=== PATIENT | female | born 1950 | race Caucasian/White ===

== ENCOUNTER 2016-10-30 19:00 | Emergency (ER) | payer MEDICARE ==
[~2016-10-30] VITALS: Ht 167.6 cm; Wt 66.4 kg
[~2016-10-30 19:00] MED LIST: ACET1TAB12 PO; AMLO5TAB2 PO; ASPI325T32 PO; ATEN100T PO; BENA40TA2 PO; CALC600T12 PO; DIAZ5TAB PO; LIP40 PO; MELO7.5O PO; METF500T4 PO; MULT-1018 PO; OMEG1CAP56 PO; OXYC1TAB24 PO; TRAZ150T72 PO
[2016-10-30 19:09] VITALS: BP 174/78; PULSE 57; RESP 16; O2SAT 96
--- NOTE | 2016-10-30 19:50 | DRSVH ---
PROCEDURE: X-RAY PELVIS W/LAT HIP (RT) ([id number]) INDICATIONS: HIP PAIN TECHNIQUE: AP pelvis and lateral view of the right hip acquired. COMPARISON: [facility], , XR PELVIS W LATERAL HIP RT, 02/23/2016, 5:17. FINDINGS: Bones: Patient is status post bilateral hip arthroplasties with hardware components in expected posi tions. The hip joint appears congruent. The visualized bony structures appear intact. Soft tissues: Overlying postoperative changes are noted. No suspicious soft tissue densities. IMPRESSION: No fracture. No acute osseous lesion. If there are persistent symptoms or clinical suspi cion for pathology, then repeat radiographs or advanced imaging (CT or bone scan) should be considere d for further evaluation. Dictated by: Brenda Ramsay MD, PhD on 10/30/2016 at 19:47 Approved by: Brenda Ramsay MD, PhD on 10/30/2016 at 19:48
--- NOTE | 2016-10-30 20:11 | ED.REPORT ---
HPI-Hip/Pelvis Prob/Inj Date of Service Oct 30, 2016 ED Provider: Ivan Sanchez MD The patient is a 66 year old female w/ a hx of DM, HTN, osteoarthritis and bilateral hip replacement who presents to the ED due to right hip pain after tripping and catching herself at about 11am. She was getting 2 bags of groceries out of the passenger door of her Jeep, her heel caught on the back ledge, she caught herself but felt her hip "pop" accompanied by pain. She is able to bear weight, but has increased in severity since the event. Dr. Vance is her PCP. Nursing Notes Stated Complaint: RIGHT HIP PAIN Chief Complaint: Extremity Trauma Nursing Notes Reviewed: Yes Allergies: Coded Allergies: No Known Allergies (Verified Allergy, Unknown, 02/23/16) Scheduled Amlodipine (Amlodipine) 5 Mg Tablet 5 MG PO DAILY Aspirin (Aspirin) 325 Mg Tablet 325 MG PO DAILY Atenolol (Atenolol) 100 Mg Tablet 100 MG PO BID Atorvastatin (Lipitor) 40 Mg Tablet 40 MG PO DAILY Benazepril (Benazepril) 40 Mg Tablet 40 MG PO DAILY Calcium Carbonate (Calcium) 600 Mg Tablet 1,250 MG PO TID Diazepam (Valium) 5 Mg Tablet 5 MG PO TID Meloxicam (Meloxicam) 7.5 Mg/5 Ml Oral.susp 15 MG PO DAILY Metformin (Metformin) 500 Mg Tablet 500 MG PO BID Multivitamin (Multi Vitamin Daily) 1 Each Tablet 1 EACH PO DAILY [place]-3 Fatty Acids/Fish Oil ([place] 3 1,000 mg Softgel) 1 Each Capsule 1 EACH PO DAILY Trazodone (Trazodone) 150 Mg Tablet 150 MG PO HS Scheduled PRN Acetaminophen/Codeine 300-30mg (Tylenol/Codeine #3) 1 Each Tablet 1-2 TABLET PO Q4H PRN PRN Pain General Time Seen by Provider: 20:17 Chief Complaint Hip injury right Hx Obtained From: Patient Arrived By: Walk-in Onset Occurred: Just prior to arrival Symptom Duration: Since onset Caused by: Fall on ground Severity: Current: Moderate Recent Healthcare: No recent doctor visit, No recent hospitalization Similar Sx Previous: No Past Medical History Past Medical History Osteoarthritis Reports: Diabetes mellitus, Hypertension Past Surgical History bilateral hip and shoulder replacements, 2 part Reports: Appendectomy, , Cholecystectomy, Hysterectomy Smoking History Current Every Day Smoker Social History Alcohol Use: Denies alcohol use Drug Use: Denies drug use Other Social History: Good social support Ambulatory Status Independent Review of Systems Musculoskeletal: Reports: Extremity pain (right leg), Joint pain (right hip) Complete sys rev & neg: except as marked. Physical Exam Initial Vital Signs Vital Signs (First) Date Time Temp Pulse Resp B/P Pulse Ox O2 Delivery O2 Flow Rate FiO2 10/30/16 19:09 36.3 57 16 174/78 96 Room Air Initial VS: Reviewed General/Constitutional: Well-developed, Well-nourished Head / Eyes: Atraumatic, Normocephalic, PERRL ENT: Mucous membranes moist, Conjunctiva normal, No scleral icterus Neck: Supple, Non-tender, Full range of motion Respiratory: Breath sounds normal, Clear to auscultation, No respiratory distress Cardiovascular: Regular rate & rhythm, Heart sounds normal, Intact distal pulses Abdomen / GI: Soft, Non-tender, No guarding, No rebound, No distention Upper Extremities: Vascular intact, Neuro intact, No swelling, No tenderness Skin: Warm, Dry, No cyanosis Psychiatric: Mood/affect normal, Behavior normal, Normal thought content Right Hip: Positive: Tenderness present... (Mild) Interpretation & Diagnostics X-Ray Interpretation Xray Interpretation: IMPRESSION: No fracture. No acute osseous lesion. If there are persistent symptoms or clinical suspicion for pathology, then repeat radiographs or advanced imaging (CT or bone scan) should be considered for further evaluation. Dictated by: Brenda Ramsay MD, PhD on 10/30/2016 at 19:47 Approved by: Brenda Ramsay MD, PhD on 10/30/2016 at 19:48 X-Ray Ordered: Pelvis, Hip right, Hip left Interpretation / Wet Read by: Interpret - Radiologist Re-Eval/Medical Decision Counseled Regarding: Diagnosis, Lab results, Need for follow-up, When/why to return to ED Discharge & Departure Impression: Primary Impression: Sprain of right hip Encounter type: initial encounter Qualified Code: S73.101A - Unspecified sprain of right hip, initial encounter Disposition: Home Discharge Condition All VS Reviewed: Yes Condition: Stable Additional Instructions: Your x-ray does not show any fracture. Use ice and Ibuprofen to help with pain. I am sending you home with some Percocet. Continue meloxicam, activity as tolerated. Ice to sore areas, keep ice wrapped in a towel. Follow up with your primary care physician next week Referrals: Chano Vance MD (PCP) Scribh[place]to Attestation Portion of this note were transcribed by Minerva Romo. I, Dr. Sanchez, personally performed the history, physical exam, and medical decision-making: I reviewed and confirmed the accuracy for the information in the transcribed note. Signed by: carito Schwartz, 10/30/16 2200 copies to: Chano Vance MD, Donald L MD Oct 30, 2016 20:11 Minerva Romo Oct 30, 2016 20:21
[2016-10-30] MEDS ORDERED: oxyCODONE-Acetamin 5-325 mg Tablet PO ONE (20:30)
[2016-10-30] MEDS ORDERED: _oxyCODONE/APAP 5-325 mg Tablet PO PRN (20:35)
[2016-10-30 21:46] VITALS: BP 148/72; PULSE 60; RESP 17; O2SAT 98
== END 2016-10-30 21:46 | disposition home or self-care (01) ==
LOC: SED 19:00
DX: S73.101A Unspecified sprain of right hip, initial encounter (principal); W18.40XA Slipping, tripping and stumbling without falling, unspecified, initial encounter; Y93.89 Activity, other specified; Y92.9 Unspecified place or not applicable; Y99.8 Other external cause status; E11.9 Type 2 diabetes mellitus without complications; I10 Essential (primary) hypertension; F17.200 Nicotine dependence, unspecified, uncomplicated; Z79.82 Long term (current) use of aspirin; Z96.643 Presence of artificial hip joint, bilateral; Z79.84 Long term (current) use of oral hypoglycemic drugs

== ENCOUNTER 2016-11-15 03:01 | Inpatient (IN) | payer MEDICARE ==
[~2016-11-15] VITALS: Ht 167.6 cm; Wt 65.6 kg
[2016-11-15] VITALS (17 sets, daily range): BP systolic 110–186; BP diastolic 51–81; PULSE 54–70; RESP 15–24; O2SAT 93–97
[~2016-11-15 03:01] MED LIST changes: -OXYC1TAB24 PO
--- NOTE | 2016-11-15 03:06 | ED.REPORT ---
HPI-Chest Pain 40 and Over Date of Service Nov 15, 2016 ED Provider: Thomas Baker MD Patient is a 66 year old female with a history of diabetes mellitus and hypertension who presents to the ED complaining of chest pain that awoke her from sleep at 2am this morning. The patient describes the pain as a burning sensation at the center of her chest, with the patient believing that she was experiencing heartburn. She reports that the pain radiates down her left arm. She admits to associated nausea and diaphoresis but denies vomiting and shortness of breath. The patient is a current everyday smoker but states that "last night was my last cigarette". Nursing Notes Stated Complaint: CHEST PAIN Chief Complaint: Chest Pain Nursing Notes Reviewed: Yes Allergies: Coded Allergies: No Known Allergies (Verified Allergy, Unknown, 02/23/16) Scheduled Amlodipine (Amlodipine) 5 Mg Tablet 5 MG PO DAILY Aspirin (Aspirin) 325 Mg Tablet 325 MG PO DAILY Atenolol (Atenolol) 100 Mg Tablet 100 MG PO BID Atorvastatin (Lipitor) 40 Mg Tablet 40 MG PO DAILY Benazepril (Benazepril) 40 Mg Tablet 40 MG PO DAILY Calcium Carbonate (Calcium) 600 Mg Tablet 1,250 MG PO TID Diazepam (Valium) 5 Mg Tablet 5 MG PO TID Meloxicam (Meloxicam) 7.5 Mg/5 Ml Oral.susp 15 MG PO DAILY Metformin (Metformin) 500 Mg Tablet 500 MG PO BID Multivitamin (Multi Vitamin Daily) 1 Each Tablet 1 EACH PO DAILY [place]-3 Fatty Acids/Fish Oil ([place] 3 1,000 mg Softgel) 1 Each Capsule 1 EACH PO DAILY Trazodone (Trazodone) 150 Mg Tablet 150 MG PO HS Scheduled PRN Acetaminophen/Codeine 300-30mg (Tylenol/Codeine #3) 1 Each Tablet 1-2 TABLET PO Q4H PRN PRN Pain General Time Seen by MD: 03:06 Chief Complaint Chest pain Hx Obtained From: Patient Arrived By: Walk-in Sudden in Onset?: Yes Onset Occurred: 1 - 4 hours ago Symptom Duration: Since onset Location: : Chest left: Chest right Quality: Burning, Painful Radiation: : Arm left Severity: Current: Moderate Severity: Maximum: Moderate Recent Healthcare: No recent doctor visit, No recent hospitalization Similar Sx Previous: No Past Medical History Past Medical History Osteoarthritis Reports: Diabetes mellitus, Hypertension Past Surgical History bilateral hip and shoulder replacements, 2 part Reports: Appendectomy, , Cholecystectomy, Hysterectomy Smoking History Current Every Day Smoker Social History Alcohol Use: Denies alcohol use Drug Use: Denies drug use Other Social History: Good social support Ambulatory Status Independent Review of Systems Respiratory: Denies: Shortness of breath Cardiovascular: Reports: Chest pain, Denies: Palpitations GI: Reports: Nausea, Denies: Vomiting Musculoskeletal: Reports: Extremity pain Complete sys rev & neg: except as marked. Physical Exam Initial Vital Signs Vital Signs (First) Date Time Temp Pulse Resp B/P Pulse Ox O2 Delivery O2 Flow Rate FiO2 11/15/16 03:04 36.9 54 15 186/81 97 Room Air Initial VS: Reviewed Head / Eyes: Atraumatic, Normocephalic, PERRL ENT: Conjunctiva normal, No scleral icterus Neck: Supple, Full range of motion Extremities: Vascular intact, Neuro intact, No swelling, No tenderness Neurologic: Alert, Oriented, Nonfocal Psychiatric: Mood/affect normal, Behavior normal, Normal thought content General/Constitutional: Awake, Alert Behavior: Positive: Anxious Respiratory / Chest: Breath sounds NL, Breath sounds = bilat, No respiratory distress, No rales, No rhonchi, No wheezing Cardiovascular: Heart rate NL, Regular rhythm, Heart sounds NL, No murmurs Abdomen: Soft, Non-tender, No guarding, No rebound Skin: Warm Color / Condition: Positive: Diaphoresis present Interpretation & Diagnostics Lab Results Interpretation Result Diagram: 11/15/16 0300 11/15/16 0300 Test 11/15/16 03:00 White Blood Count 11.3th/mm3 (3.8-10.1) Red Blood Count 4.79mil/mm3 (3.90-5.20) Hemoglobin 14.9g/dL (12.0-15.6) Hematocrit 45.1% (35.0-46.0) Mean Corpuscular Volume 94.2fL (81-100) Mean Corpuscular Hemoglobin 31.1pg (27.0-35.0) Mean Corpuscular Hemoglobin Concent 33.0% (32.0-37.0) Red Cell Distribution Width 14.2% (12.3-15.4) Platelet Count 328bil/L (150-400) Neutrophils (%) (Auto) 46.7% (40-74) Lymphocytes (%) (Auto) 39.5% (14-46) Monocytes (%) (Auto) 8.8% (4-12) Eosinophils (%) (Auto) 4.3% (0-5) Basophils (%) (Auto) 0.6% (0-3) Sodium Level 137mEq/L (134-144) Potassium Level 3.9mEq/L (3.5-5.2) Chloride Level 100mEq/L (97-108) Carbon Dioxide Level 23mmol/L (18-29) Blood Urea Nitrogen 18mg/dL (8-27) Creatinine 0.75mg/dL (0.57-1.00) Estimat Glomerular Filtration Rate 111mL/min (>59) Glucose Level 152mg/dL (60-99) Calcium Level 10.0mg/dL (8.5-10.1) Magnesium Level 1.9mg/dL (1.6-2.6) Total Bilirubin 0.2mg/dL (0.0-1.2) Aspartate Amino Transf (AST/SGOT) 14U/L (0-50) Alanine Aminotransferase (ALT/SGPT) 13U/L (0-32) Alkaline Phosphatase 71U/L (25-165) Troponin T 0.010ug/L (0.0-0.011) Total Protein 7.6g/dL (6.4-8.4) Albumin 4.6g/dL (3.4-5.0) Hold Max Top Tube Received (Received) ECG Interpretation ECG Interpretation: Sinus rhythm, Rate 53 Acute inferior wall NM Time: 03:11 Interpreted by: ED physician ECG Interpretation: Further changes concerning for an acute inferior wall NM Time: 03:25 Interpreted by: ED physician X-Ray Chest Interpretation Chest Xray Interpretation: Impression: No acute cardiopulmonary process. View: Portable Interpretation / Wet Read by: Wet read ED physician Re-Eval/Medical Decision Med Decision/Clinical Course 66-year-old female with risk factors of smoking, diabetes, hypertension, but no prior known coronary disease presents with onset of burning central chest pain related to her left arm with shortness of breath nausea or diaphoresis. EKG shows inferior wall NM. Cath team notified and are here to take her to [facility] for intervention. Improved but not pain free after routine STEMI measures. Source of Hx: Old records Time of Eval: :15 Re-Evaluation/Progress Note: Informed the patient that her EKG changes are consistent with an acute NM. Will consult cardiology and she will likely go to the [facility]. Time of Eval: 03:38 Re-Evaluation/Progress Note: Rechecked the patient. Her pain is improved. It was confirmed that she will be going to the [facility] and she will be admitted to the hospital. Patient understands and agrees with this plan. All questions were addressed. Time of Eval: 03:51 Re-Evaluation/Progress Note: Patient was taken to the [facility]. Consultation #1: Referral / Consult Name: Eduar Boss MD Consulted With: Cardiology Call Returned at: 03:17 Note: Spoke with Dr. Boss, cardiology, about the patient's EKG. He is unsure if the changes are consistent with a STEMI. Asks for a repeat EKG. Consultation #2: Referral / Consult Name: Eduar Boss MD Consulted With: Cardiology Call Returned at: 03:26 Proposal Coordinator: Requested [facility] Note: Dr. Boss has reviewed the additional EKG. He requests the [facility] team. Counseled Regarding: Diagnosis, Lab results, Need for admission Discharge & Departure Primary Impression: STEMI (ST elevation myocardial infarction) Involved coronary artery: unspecified coronary artery Qualified Code: I21.3 - ST elevation (STEMI) myocardial infarction of unspecified site Disposition: ADMITTED TO HOSPITAL Discharge Condition All VS Reviewed: Yes Condition: Stable Referrals: Chano Vance MD (PCP) Crit Care Except Billable Proc Time Spent: 30-74 minutes Services Performed: Patient management by me, Time spent at bedside, Reviewing test results, Reviewing imaging, Discussing patient care, Documentation in record, Time with fam/surrogate Scribe Attestation Portions of this note were transcribed by Divya Bragg. I, Dr. Baker personally performed the history, physical exam and medical decision-making; I reviewed and confirmed the accuracy of the information in the transcribed note. Signed by: Marla Floyd, 11/15/2016 0359 copies to: Chano Vance MD, Christopher W MD Nov 15, 2016 03:06 Divya Bragg Nov 15, 2016 03:17
[2016-11-15] MEDS ORDERED: Nitroglycerin 50,000 mcg/250 mL D5W Premix IV ONE ×3 (03:15→03:37)
[2016-11-15] MEDS ORDERED: Heparin 25,000 Unit/500 mL 0.45% NS Premix IV ONE (03:15)
[2016-11-15] MEDS ORDERED: MeTOProlol 1 mg/mL 5 mL Inj ONE (03:16)
[2016-11-15] MEDS ORDERED: Nitroglycerin 2% 1 Gm Ointment TOPICAL ONE (03:16)
[2016-11-15] MEDS ORDERED: Ondansetron 2 mg/mL 2 mL Inj ONE (03:17)
[2016-11-15] MEDS ORDERED: Heparin 5,000 Unit/mL Inj ONE (03:18)
[2016-11-15 03:20] LABS: BASOPHILS % (AUTO) 0.6 % (0-3); EOSINOPHILS % (AUTO) 4.3 % (0-5); MONOCYTES % (AUTO) 8.8 % (4-12); Mean Corpuscular Hemoglobin 31.1 pg (27.0-35.0); Mean Corpuscular Volume 94.2 fL (81-100); NEUTROPHILS % (AUTO) 46.7 % (40-74); Platelet Count 328 bil/L (150-400)
[2016-11-15] MEDS ORDERED: Heparin 1,000 Units/500 mL NS Premix IV ONE (03:30)
[2016-11-15] MEDS ORDERED: 0.9% Sodium Chloride 2,000 ML ONE (03:31)
[2016-11-15] MEDS ORDERED: Heparin 1,000 Unit/mL 10 mL Inj ONE (03:31)
[2016-11-15] MEDS ORDERED: Atropine 1 mg/10 mL (Code) Syringe ONE (03:31)
[2016-11-15] MEDS ORDERED: Phenylephrine/NS-PF 100 mCg/mL 5 mL Syringe IVPUSH ONE (03:37)
[2016-11-15] MEDS ORDERED: NitroPRUSSIDE 25,000 mCg/mL 2 mL Inj IV ONE (03:38)
[2016-11-15] MEDS ORDERED: 0.9% Sodium Chloride 250 ML ONE (03:38)
[2016-11-15 03:42] LABS: TROPONIN T 0.01 ug/L (0.0-0.011)
[2016-11-15 03:53] LABS: Magnesium 1.9 mg/dL (1.6-2.6)
[2016-11-15] MEDS ORDERED: fentaNYL-PF 50 mCg/mL 2 mL Inj ONE (03:58)
--- NOTE | 2016-11-15 06:56 | DI95 ---
[address] [address] INTERVENTIONAL CARDIAC CATHETERIZATION PATIENT: JUANA MACKENZIE : 1950 MR#: [id number] ADMIT: 11/15/2016 JOB ID: [id number] PROCEDURE: 1. Selective right and left coronary angiography. 2. Left heart catheterization. 3. Percutaneous intervention on the right coronary artery. INDICATION: Acute inferior MO. PROCEDURAL DETAILS: The procedure was done via right femoral approach using a 6-Citizen [place] system. ANGIOGRAPHIC FINDINGS: 1. Left main: Short. No significant disease. 2. LAD: Moderate caliber vessel free of any critical disease. 3. Circumflex: Is nondominant. It is essentially a single obtuse marginal system. The AV groove branch distally probably gives off a small 2nd OM branch. This is less than 1 mm. There is either some spasm in this or an eccentric lesion. It did not fill up. It demonstrated slow flow in its very distal segment. As mentioned, this was a very small less than 1 mm vessel. 4. Right coronary artery: Is totally occluded in its mid segment. It is a dominant vessel. It appears to be diffusely diseased and small to moderate caliber. 5. Left heart catheterization revealed an LVEDP of 17. There was no gradient upon pullback. Hand injections seemed to suggest preserved contractility. INTERVENTIONAL REPORT: We then proceeded ahead with an intervention on the right coronary artery. A run-through wire was used. The lesion was pre-dilated with a 2.0 balloon and then stented with a 2.75 x 15 mm Xience drug-coated stent. Following stent, we noticed that distal to the stent there was either plaque or thrombus. This was tackled with repeat balloon inflations, initially with 2.0 and then with 2.5. During the final angiogram, there was inadvertent injection of a small bubble. There was transient slow flow but it resolved with small doses of Nipride, and no further intervention needed to be done for this. Of note, the patient initially, before we started the case, had a ventricular fibrillation arrest and, during the case, unrelated to the above, the patient had another ventricular fibrillation arrest. Both the times, she was successfully cardioverted with a single shock. The patient will be admitted to the CCU under hospitalist service.
--- NOTE | 2016-11-15 08:19 | DRSVH ---
PROCEDURE: X-RAY CHEST ONE VIEW, PORTABLE ([id number]) INDICATIONS: CP TECHNIQUE: One view of the chest was acquired. COMPARISON: 01/31/2008 FINDINGS: Surgical changes and devices: Surgical clips right upper quadrant.. Lungs and pleura: No pleural effusions or pneumothorax. Lungs are clear. Scattered pulmonary granul omata. Mediastinum: Mediastinal contours appear normal. Heart size is normal. Aortic calcifications. Bones and chest wall: No suspicious bony lesions. Thoracic spondylosis. Overlying soft tissues appe ar unremarkable. IMPRESSION: 1. No acute cardiopulmonary abnormality. 2. Scattered calcified granulomata. Dictated by: Gio Long M.D. on 11/15/2016 at 8:17 Approved by: Gio Long M.D. on 11/15/2016 at 8:18
[2016-11-15 08:56] LABS: APPEARANCE,URINE HAZY (CLEAR,HAZY); COLOR,URINE YELLOW (YELLOW)
[2016-11-15 08:57] LABS: OCCULT BLOOD,URINE SMALL (NEGATIVE); UROBILINOGEN,URINE NORMAL (NORMAL)
[2016-11-15] MEDS: Codeine-APAP 30-300 mg Tablet PO PRN ×3 (11:47→21:15)
--- NOTE | 2016-11-15 12:06 | DRSVH ---
[facility] [address] [place] [address] Echocardiogram Report Name: JUANA MACKENZIE CStsherry Vishal e: 11/15/2016 Height: 66 in Hospital Exam Location: [facility] Weight: 146 lb Gender: Female BSA: 1.7 m2 : 1950 Age: 66 yrs BP: 130/74 mmHg Reason For Study: CHEST PAIN, STEMI Ordering Physician: HOSPITALIST FÁTIMAHPerformed By: Eugene Valderrama Referring Physician: TAYE BRANDON Interpretation Summary 1) Normal left ventricular thickness and size with borderline reduced systolic function (EF 50-55%). 2) Normal right ventricular size and function. 3) Basal inferolateral wall and basal to mid inferior wall are akinetic 4) No significant valvular abnormalities. 5) No prior Echo available for comparison. Procedure: A two-dimensional transthoracic echocardiogram with color flow and Doppler was performed. The study quality was technically good. Comparison is made with the echocardiogram of 58-65. The patient was in normal sinus rhythm during the exam. Left Ventricle: The left ventricle is normal in size. Left ventricular wall thickness is mildly increased. There is no ventricular septal defect visualized. The ejection fraction is estimated to be 50-55%. Basal inferolateral wall and basal to mid inferior wall are akinetic. Assessment of diastolic parameters suggests a pseudonormalization pattern, consistent with elevated filling pressures. Right Ventricle: The right ventricle is normal in size, thickness and function. Atria: Borderline left atrial enlargement. Right atrial size is normal. The interatrial septum is intact with no evidence for an atrial septal defect. Mitral Valve: The mitral valve leaflets appear borderline thickened, but open well. There is trace mitral regurgitation. Aortic Valve: The aortic valve is trileaflet. The aortic valve opens well. The aortic valve is grossly normal. No aortic regurgitation is present. Tricuspid Valve: The tricuspid valve is normal. There is a trace or physiologic amount of tricuspid regurgitation. Pulmonary artery pressures cannot be estimated because of the lack of a measurable TR jet velocity. Pulmonic Valve: The pulmonic valve leaflets are thin and pliable; valve motion is normal. There is a trace or physiologic amount of pulmonic regurgitation. Great Vessels: The aortic root is normal size. The dimensions of the ascending aorta are normal. The pulmonary artery is normal size. The IVC is dilated (diameter is greater than 2.1 cm) yet it collapses greater than 50% with a sniff. This suggests a right atrial pressure of 8 mm Hg. Pericardium/ Pleura There is no pericardial effusion. There is no pleural effusion. MMode/2D Measurements & Calculations LVIDd: 4.5 cm RA long axis LVOT diam: 1.8 cm LVIDs: 2.6 cm LA A2 area: 18.0 cm AoV Opening FS: 41.6 % LA A4 area: 18.8 cm RA area EPSS: 0.28 cm LA length (vol) Ao root diam IVSd: 0.81 cm : 13.3 cm LVPWd: 1.1 cm LA vol: 53.1 ml RA vol asc Aorta Diam LA vol index : 32.8 ml RA Ao Arch Diam (Prox : 18.7 mm2 Trans): 1.9 cm IVC diam: 2.5 cm LV jones. diameter/BSA LV sys. diameter/BSA (cm/m^2): 2.6 (cm/m^2): 1.5 Doppler Measurements & Calculations Ao V2 max: 110.5 cm/secMV E max miquel MV E/A: 1.6 PA V2 max Ao max P.9 mmHg : 111.7 cm/sec Med Peak E' Miquel : 74.5 cm/sec Ao mean P.7 mmHg MV A max miquel PA mean PG LVOT Max Miquel : 71.3 cm/sec E/E' med: 18.3 : 1.4 mmHg : 106.5 cm/sec Lat Peak E' Miquel ALAN(I,D): 2.1 cm E/E' lat: 15.2 sev ratio: 0.81 E/e' average MV A dur: 0.14 sec MV dec time: 0.16 sec Ao V2 mean LV V1 max PG PA V2 mean : 79.5 cm/sec : 58.3 cm/sec Ao V2 VTI: 25.6 cm LV V1 VTI: 20.6 cmPA pr(Accel) : 12.0 mmHg ALAN(V,D): 2.5 cm2 ALAN indexed to BSA (cm^2/m^2): 1.2 Reading Physician:12:05 PM
[2016-11-15] MEDS: 0.9% Sodium Chloride 1,000 ML IV SCH ×4 (12:25→21:55)
[2016-11-15] MEDS: MeTOProlol XL 25 mg ER24 Tablet PO SCH ×2 (12:30→21:14)
[2016-11-15] MEDS ORDERED: Ondansetron 2 mg/mL 2 mL Inj IVPUSH PRN (12:30)
--- NOTE | 2016-11-15 12:34 | PCM.CHPCAR ---
Consult Subjective Date of service Nov 15, 2016 Date of admit Nov 15, 2016 at 03:31 Provider Requesting Consult Requesting Provider: Saji Zhu MD Primary Care Physician Primary Care Physician: Chano Vance MD Chief Complaint Chest pain, STEMI History of Present Illness 66 yo W h/o diabetes, HTN and smoking admitted with STEMI. 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 She was in her normal state of health until Tuesday when she had chest pain radiating down her left arm during the night lasting about an hour before self resolving with rest. She had similar episode on Tuesday night. On Tuesday night, patient had recurrence of chest pain that was persistent and not resolving. She had her family member drive her to [facility] ER where she was found to have ST elevation [place]. She was taken to the [facility] and did have a couple of episodes of cardiac arrest prior to even the intervention was performed. She received a drug-eluting stent to her mid RCA. Since her stent placement, she feels good except for pleuritic chest pain. She also has chest pain all palpation of her chest. Denies dyspnea, lightheadedness , syncope, palpitations, or heart racing sensations. Review of Systems Review of Systems per HPI and otherwise unremarkable PMH Past Medical History # HTN: on amlodipine, benazepril, atenolol at home # Diabetes: on metformin as outpatient # Smoking Scheduled Amlodipine (Amlodipine) 5 Mg Tablet 5 MG PO DAILY (Reported) Aspirin (Aspirin) 325 Mg Tablet 325 MG PO DAILY (Reported) Atenolol (Atenolol) 100 Mg Tablet 100 MG PO BID (Reported) Atorvastatin (Lipitor) 40 Mg Tablet 40 MG PO DAILY (Reported) Benazepril (Benazepril) 40 Mg Tablet 40 MG PO DAILY (Reported) Calcium Carbonate (Calcium) 600 Mg Tablet 1,250 MG PO TID (Reported) Diazepam (Valium) 5 Mg Tablet 5 MG PO TID (Reported) Meloxicam (Meloxicam) 7.5 Mg/5 Ml Oral.susp 15 MG PO DAILY (Reported) Metformin (Metformin) 500 Mg Tablet 500 MG PO BID (Reported) Multivitamin (Multi Vitamin Daily) 1 Each Tablet 1 EACH PO DAILY (Reported) [place]-3 Fatty Acids/Fish Oil ([place] 3 1,000 mg Softgel) 1 Each Capsule 1 EACH PO DAILY (Reported) Trazodone (Trazodone) 150 Mg Tablet 150 MG PO HS (Reported) Scheduled PRN Acetaminophen/Codeine 300-30mg (Tylenol/Codeine #3) 1 Each Tablet 1-2 TABLET PO Q4H PRN PRN Pain (Reported) Current Inpatient Medications Current Medications Clopidogrel Bisulfate 75 mg DAILY PO Last administered on 11/15/16 11:12; Admin Dose 75 MG; Start 11/15/16 at 08:40 Metoprolol Tartrate 12.5 mg TID PO; Start 11/15/16 at 14:30 Aspirin 325 mg DAILY PO Last administered on 11/15/16 11:12; Admin Dose 325 MG; Start 11/15/16 at 08:40; Stop 11/15/16 at 11:41; Status DC Acetaminophen/ Codeine Phosphate 2 tablet Q4 PRN PO Last administered on 11:47; Admin Dose 2 TABLET; Start 11/15/16 at 11:30 Atorvastatin Calcium 40 mg HS PO; Start 11/15/16 at 21:00 Aspirin 81 mg 81 mg DAILY PO; Start 11/16/16 at 08:30 Sodium Chloride 1,000 ml @ 250 mls/hr Q4H IV; Start 11/15/16 at 12:25 Acetaminophen 650 mg Q4H PRN PO; Start 11/15/16 at 12:25 Morphine Sulfate 1-4 Q5MIN PRN IVPUSH; Start 11/15/16 at 12:25 Ondansetron HCl 4 mg Q4H PRN IVPUSH; Start 11/15/16 at 12:30 Allergies: Coded Allergies: No Known Allergies (Verified Allergy, Unknown, 02/23/16) Family History Family History Son is healthy Social History Hx Alcohol Use: NoHx Substance Use: No Smoking Status: Current Every Day Smoker Exam Vital Signs Vital Sign - Last Date Time Temp Pulse Resp B/P Pulse Ox O2 Delivery O2 Flow Rate FiO2 11/15/16 08:00 36.4 62 18 133/58 96 Room Air General appearance: No apparent distress, well-nourished, pleasant, cooperative HEET: Normocephalic atraumatic, no scleral icterus, tongue midline, mucous membranes moist Neck: supple Cardiovascular: RRR, normal S1 and normal S2, no murmurs/ rubs/gallops, PMI nondisplaced, no JVD, no peripheral edema Chest wall tender to palpation Respiratory: Good aeration, CTAB Abdomen: Soft, nontender, obese, + bowel sounds Neuro: Alert, no facial droop, tongue midline, no gross motor deficits Psych: appropriate affect Skin: no rashes on face, neck, and lower extremities Lab and Diagnostics Result Diagram: 11/15/16 0300 11/15/16 0300 X-Rays, CTs and MRIs Echo 11/15/2016: 1) Normal left ventricular thickness and size with borderline reduced systolic function (EF 50-55%). 2) Normal right ventricular size and function. 3) Basal inferolateral wall and basal to mid inferior wall are akinetic 4) No significant valvular abnormalities. 5) No prior Echo available for comparison. Assessment & Plan Assessment 66 yo W h/o diabetes, HTN and smoking admitted with STEMI. # STEMI: patient admitted with STEMI s/p emergent YANDEL to mid RCA. LVEF 50-55%. No anginal symptoms since stent placement. Patient and son educated the patient about her condition. I also spent significant time and the patient about medication compliance, eating healthy, and quitting smoking. Plan as below: - Continue aspirin 81mg daily - Continue clopidogrel 75mg daily - Start atorvastatin 40mg qhs. Fasting lipids ordered as add-on to labs done today morning - Start metoprolol XL 25mg bid and uptitrate as needed to keep HR < 70 - Start lisinopril 10mg qhs. This can be uptitrated to keep SBP < 130 - Hold off amlodipine (home dose) as BP is well controlled so far - Nitro PRN - Quit smoking. Patient educated provided. 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 I have asked her and her son to have them also quit smoking. # VF arrest: patient has chest wall pain due to shock for VF arrest. No VF arrest since arrival in the ICU after stent placement. Continue to monitor on telemetry # HTN: as above # Diabetes: on metformin as outpatient. Defer to primary team # Smoking: smoking cessation as above Isra Hammonds MD Nov 15, 2016 12:34
--- NOTE | 2016-11-15 13:13 | PCM.HPMED ---
Subjective Date of Service Nov 15, 2016 Primary Provider: Admitting Physician: Eduar Boss MD Primary Care Physician: Chano Vance MD Attending Physician: Eduar Boss MD Admit Status: From the Emergency Department, Full Admit, Admit to Yellow Team, Critical Care Chief Complaint: Chest pain, STEMI History of Present Illness: 66 yo with 3 days of recurrent chest pain, all at rest. She awoke at about 1 AM today with a deep and more severe chest pressure with some radiation to the left arm. No nausea, dyspnea or diaphoresis. Nothing helped or worsened the pain. Not increased with deep breathing. No recent dyspepsia. No recent exertional chest pain or HERNANDEZ. No leg edema or orthopnea. No recent cough, rhinorrhea, or fevers. No leg edema or hemoptysis. A STEMI code was called in ED and she was taken to [facility]. She had a vfib arrest and was defibrillaed before cath. A totoally occluded RCA was foud and ballooned and stented. She had another vfib arrest in cath and was defibrillated again. Since procedure she has had only some chronic back pain but no chest pain or dyspnea. Review of Systems: All reviewed and otherwise negative except as noted in history and physical. Allergies Coded Allergies: No Known Allergies (Verified Allergy, Unknown, 02/23/16) Home Medications Amlodipine (Amlodipine) 5 Mg Tablet 5 MG PO DAILY (Reported) Aspirin (Aspirin) 325 Mg Tablet 325 MG PO DAILY (Reported) Atenolol (Atenolol) 100 Mg Tablet 100 MG PO BID (Reported) Atorvastatin (Lipitor) 40 Mg Tablet 40 MG PO DAILY (Reported) Benazepril (Benazepril) 40 Mg Tablet 40 MG PO DAILY (Reported) Calcium Carbonate (Calcium) 600 Mg Tablet 1,250 MG PO TID (Reported) Diazepam (Valium) 5 Mg Tablet 5 MG PO TID (Reported) Meloxicam (Meloxicam) 7.5 Mg/5 Ml Oral.susp 15 MG PO DAILY (Reported) Metformin (Metformin) 500 Mg Tablet 500 MG PO BID (Reported) Multivitamin (Multi Vitamin Daily) 1 Each Tablet 1 EACH PO DAILY (Reported) [place]-3 Fatty Acids/Fish Oil ([place] 3 1,000 mg Softgel) 1 Each Capsule 1 EACH PO DAILY (Reported) Trazodone (Trazodone) 150 Mg Tablet 150 MG PO HS (Reported) Scheduled PRN Acetaminophen/Codeine 300-30mg (Tylenol/Codeine #3) 1 Each Tablet 1-2 TABLET PO Q4H PRN PRN Pain (Reported) Current Inpatient Medications PMH 1. Essential hypertension 2. Diabetes mellitus 2 3. Tobacco dependence Family History negative for CAD Social History Hx Alcohol Use: No Hx Substance Use: No Smoking Status: Current Every Day Smoker Living Arrangement: with Family Exam Vital Signs Vital Sign - Last Date Time Temp Pulse Resp B/P Pulse Ox O2 Delivery O2 Flow Rate FiO2 11/15/16 12:39 70 11/15/16 12:00 36.7 24 133/61 97 Room Air Exam Alert and oriented x 3, fluent speech Normal skull, nose and ears Anicteric sclera, symmetric pupils Neck supple, normal thyroid, no adenopathy Lungs clear, normal effort heart regular, no murmur abdomen soft, NT No edema Right groin without hematoma No rash Normal joints Normal muscle strength Lab and Diagnostics Result Diagram: 11/15/16 0300 11/15/16 0300 X-Rays, CTs and MRIs CXR normal 12-lead ECG ST elevations inferior leads. Assessment & Plan 1. STEMI with RCA YANDEL. POA. Continue with dual antiplatelets, metoprolol, and statin. 2. VFib arrest, resolved. Telemetry. 3. Essential hypertension, POA. Up titrate metoprolol. 4. Tobacco dependence, POA. Nicoderm 5. DM 2 , POA. coreectional lispro with AC,HS accuchecks. Full code inpatient status with 2 nights stay anticipated. Pain Evaluation: Adequate Pain Control Resuscitation Status: CPR: Attempt Resuscitation Time spent 55 min Saji Zhu MD Nov 15, 2016 13:13
[2016-11-15] MEDS ORDERED: Glucose 40% Oral Gel 15 Gm Tube PO PRN (13:25)
[2016-11-15] MEDS: Insulin LISPRO 300 Unit/3 mL Inj SUBQ SCH ×2 (17:14→21:17)
[2016-11-16] VITALS (7 sets, daily range): BP systolic 121–156; BP diastolic 61–73; PULSE 52–66; RESP 16–20; O2SAT 94–96
[2016-11-16] MEDS: Codeine-APAP 30-300 mg Tablet PO PRN ×5 (04:00→19:37)
[2016-11-16] MEDS: 0.9% Sodium Chloride 1,000 ML IV SCH ×5 (04:01→19:36)
[2016-11-16] MEDS: Insulin LISPRO 300 Unit/3 mL Inj SUBQ SCH ×4 (08:00→20:55)
[2016-11-16] MEDS: MeTOProlol XL 25 mg ER24 Tablet PO SCH (08:01)
[2016-11-16] MEDS ORDERED: MELO-259 PO (08:32)
--- NOTE | 2016-11-16 09:18 | PCM.PNMED ---
Subjective Date of Service Nov 16, 2016 Subjective No chest pain or dyspnea. No nausea, emesis. No cough , fevers or chills. No right groin pain. No abdomen pain. Exam Vital Signs Vital Sign - Last Date Time Temp Pulse Resp B/P Pulse Ox O2 Delivery O2 Flow Rate FiO2 11/16/16 08:05 36.8 57 20 156/73 95 Room Air Intake and Output 11/15/16 11/15/16 11/16/16 Cumulative From/Thru 15:00 23:00 07:00 11/15/16 03:04 - 11/16/16 06:20 Intake Total 1040 ml 600 ml 1640 ml Output Total 1200 ml 1400 ml 2600 ml Balance -160 ml -800 ml -960 ml Intake Oral 640 ml 600 ml 1240 ml IV Total 400 ml 400 ml Output Urine Total 1200 ml 1400 ml 2600 ml # Voids 1 3 4 Exam Alert and oriented x 3, fluent speech Normal skull, nose and ears Anicteric sclera, symmetric pupils Neck supple, normal thyroid, no adenopathy Lungs clear, normal effort heart regular, no murmur abdomen soft, NT No edema Right groin without hematoma IVs and Medications Medications Reviewed: Medications were reviewed in detail Lab and Diagnostics Result Diagram: 11/15/16 0300 11/16/16 0400 X-Rays, CTs and MRIs CXR normal 12-lead ECG ST elevations inferior leads. Assessment & Plan 1. STEMI with RCA YANDEL. POA. Continue with dual antiplatelets, metoprolol, and statin.Anticipate dc 4/5. Ambulate and tele today. 2. VFib arrest (x 2), resolved. Telemetry. 3. Essential hypertension, POA. Up titrate metoprolol. Increase lisinopril. 4. Tobacco dependence, POA. Nicoderm, counseled the importance of smoking cessation. 5. DM 2 , POA. coreectional lispro with AC,HS accuchecks. Full code inpatient status with 2 nights stay anticipated. Pain Evaluation: Adequate Pain Control Resuscitation Status: CPR: Attempt Resuscitation Time spent 25 min Saji Zhu MD Nov 16, 2016 09:18
--- NOTE | 2016-11-16 11:25 | PCM.PNCARD ---
Subjective Date of service Nov 16, 2016 Chief Complaint Chest pain, STEMI History of Present Illness 66 yo W h/o diabetes, HTN and smoking admitted with STEMI. 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 She was in her normal state of health until Tuesday when she had chest pain radiating down her left arm during the night lasting about an hour before self resolving with rest. She had similar episode on Tuesday night. On Tuesday night, patient had recurrence of chest pain that was persistent and not resolving. She had her family member drive her to [facility] ER where she was found to have ST elevation [place]. She was taken to the [facility] and did have a couple of episodes of cardiac arrest prior to even the intervention was performed. She received a drug-eluting stent to her mid RCA. Since her stent placement, she feels good except for pleuritic chest pain. She also has chest pain all palpation of her chest. Denies dyspnea, lightheadedness , syncope, palpitations, or heart racing sensations. Subjective: No angina overnight. Patient's chest wall pain has improved since yesterday. She wants to know if she can take a shower today. PROBLEM LIST: # STEMI # HTN # Diabetes # Smoking Exam Vital Signs Vital Sign - Last Date Time Temp Pulse Resp B/P Pulse Ox O2 Delivery O2 Flow Rate FiO2 11/16/16 11:02 36.7 58 20 145/62 94 Room Air Intake and Output 11/15/16 11/15/16 11/16/16 Cumulative From/Thru 15:00 23:00 07:00 11/15/16 03:04 - 11/16/16 06:20 Intake Total 1040 ml 600 ml 1640 ml Output Total 1200 ml 1400 ml 2600 ml Balance -160 ml -800 ml -960 ml Intake Oral 640 ml 600 ml 1240 ml IV Total 400 ml 400 ml Output Urine Total 1200 ml 1400 ml 2600 ml # Voids 1 3 4 General appearance: No apparent distress, well-nourished, pleasant, cooperative HEET: Normocephalic atraumatic, no scleral icterus, tongue midline, mucous membranes moist Neck: supple Cardiovascular: RRR, normal S1 and normal S2, no murmurs/ rubs/gallops, PMI nondisplaced, no JVD, no peripheral edema Chest wall tender to palpation Respiratory: Good aeration, CTAB Abdomen: Soft, nontender, obese, + bowel sounds Neuro: Alert, no facial droop, tongue midline, no gross motor deficits Psych: appropriate affect Skin: no rashes on face, neck, and lower extremities Lab and Diagnostics Result Diagram: 11/15/16 0300 11/16/16 0400 X-Rays, CTs and MRIs Echo 11/15/2016: 1) Normal left ventricular thickness and size with borderline reduced systolic function (EF 50-55%). 2) Normal right ventricular size and function. 3) Basal inferolateral wall and basal to mid inferior wall are akinetic 4) No significant valvular abnormalities. 5) No prior Echo available for comparison. Assessment & Plan Assessment 66 yo W h/o diabetes, HTN and smoking admitted with STEMI. # STEMI: patient admitted with STEMI s/p emergent YANDEL to mid RCA. LVEF 50-55%. No anginal symptoms since stent placement. Patient and family educated about her condition. I spent significant time again today about medication compliance , eating healthy, and quitting smoking. Plan as below: - Continue aspirin 81mg daily - Continue clopidogrel 75mg daily - Continue atorvastatin 40mg qhs - Continue metoprolol XL 25mg qhs - Increase lisinopril to 20mg bid - Hold off amlodipine (home dose) but okay to start if BP remains elevated today - Nitro PRN - Quit smoking. Patient re-educated today along with granddaughter on the phone. - Patient to walk down the hallway. If she is able to walk without angina or ectopy, she can take a shower today evening. # VF arrest: patient has chest wall pain due to shock for VF arrest. No VF arrest since stent placement. Continue to monitor on telemetry # HTN: as above # Diabetes: on metformin as outpatient. Defer to primary team # Smoking: smoking cessation as above Anticipate discharge to home tomorrow. Cardiology f/u in 4 weeks. Problems: Pain Evaluation: Adequate Pain Control Resuscitation Status: CPR: Attempt Resuscitation Isra Hammonds MD Nov 16, 2016 11:25
[2016-11-16] MEDS ORDERED: MeTOProlol XL 25 mg ER24 Tablet PO SCH (21:00)
[2016-11-17] VITALS: PULSE 52
[2016-11-17] MEDS: 0.9% Sodium Chloride 1,000 ML IV SCH ×4 (00:24→12:25)
[2016-11-17] MEDS: Codeine-APAP 30-300 mg Tablet PO PRN ×2 (00:25→08:43)
[2016-11-17 04:18] VITALS: BP 127/57; PULSE 48; RESP 16; O2SAT 97
[2016-11-17] MEDS: Insulin LISPRO 300 Unit/3 mL Inj SUBQ SCH ×2 (08:00→12:00)
[2016-11-17 08:34] VITALS: BP 184/69; PULSE 55; RESP 18; O2SAT 96
[2016-11-17 10:04] VITALS: PULSE 58
[2016-11-17] MEDS ORDERED: CLOP75TA28 PO (10:51)
[2016-11-17] MEDS ORDERED: ASPI81TA3 PO (10:51)
[2016-11-17] MEDS ORDERED: METO25TA99 PO (10:51)
[2016-11-17] MEDS ORDERED: LISI-567 PO (10:54)
--- NOTE | 2016-11-17 11:07 | PCM.PNCARD ---
Subjective Date of service Nov 17, 2016 Chief Complaint Chest pain, STEMI History of Present Illness 66 yo W h/o diabetes, HTN and smoking admitted with STEMI. 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 She was in her normal state of health until Tuesday when she had chest pain radiating down her left arm during the night lasting about an hour before self resolving with rest. She had similar episode on Tuesday night. On Tuesday night, patient had recurrence of chest pain that was persistent and not resolving. She had her family member drive her to [facility] ER where she was found to have ST elevation [place]. She was taken to the [facility] and did have a couple of episodes of cardiac arrest prior to even the intervention was performed. She received a drug-eluting stent to her mid RCA. Since her stent placement, she feels good except for pleuritic chest pain. She also has chest pain all palpation of her chest. Denies dyspnea, lightheadedness , syncope, palpitations, or heart racing sensations. Subjective: No angina overnight. Patient's chest wall pain has improved significantly. She was able to walk down the hallway without much difficulty yesterday. PROBLEM LIST: # STEMI # HTN # Diabetes # Smoking Exam Vital Signs Vital Sign - Last Date Time Temp Pulse Resp B/P Pulse Ox O2 Delivery O2 Flow Rate FiO2 11/17/16 10:04 58 11/17/16 08:34 36.4 18 184/69 96 Room Air Intake and Output 11/16/16 11/16/16 11/17/16 Cumulative From/Thru 15:00 23:00 07:00 11/15/16 03:04 - 11/17/16 06:11 Intake Total 510 ml 300 ml 2450 ml Output Total 925 ml 3525 ml Balance -415 ml 300 ml -1075 ml Intake Oral 510 ml 300 ml 2050 ml IV Total 400 ml Output Urine Total 925 ml 3525 ml # Voids 1 5 General appearance: No apparent distress, well-nourished, pleasant, cooperative HEET: Normocephalic atraumatic, no scleral icterus, tongue midline, mucous membranes moist Neck: supple Cardiovascular: RRR, normal S1 and normal S2, no murmurs/ rubs/gallops, PMI nondisplaced, no JVD, no peripheral edema Chest wall tender to palpation (much improved from 2 days ago) Respiratory: Good aeration, CTAB Abdomen: Soft, nontender, obese, + bowel sounds Neuro: Alert, no facial droop, tongue midline, no gross motor deficits Groin: no hematoma on the right groin Lab and Diagnostics Result Diagram: 11/15/16 0300 11/17/16 0823 X-Rays, CTs and MRIs Echo 11/15/2016: 1) Normal left ventricular thickness and size with borderline reduced systolic function (EF 50-55%). 2) Normal right ventricular size and function. 3) Basal inferolateral wall and basal to mid inferior wall are akinetic 4) No significant valvular abnormalities. 5) No prior Echo available for comparison. Assessment & Plan Assessment 66 yo W h/o diabetes, HTN and smoking admitted with STEMI. # STEMI: patient admitted with STEMI s/p emergent YANDEL to mid RCA. LVEF 50-55%. No anginal symptoms since stent placement. She is able to walk down the hallway without symptoms. Patient and family educated about her condition. I spent significant time again today about medication compliance, eating healthy, and quitting smoking. Plan as below: - Continue aspirin 81mg daily - Continue clopidogrel 75mg daily - Continue atorvastatin 40mg qhs - Continue metoprolol XL 25mg qhs - Continue lisinopril 20mg bid - Start amlodipine 5mg daily - Nitro PRN - Quit smoking. I have reinforced this to the patient daily, including today. # VF arrest: patient has chest wall pain due to shock for VF arrest bu the chest wall pain is improving. No VF arrest since stent placement. # HTN: as above # Diabetes: on metformin as outpatient. Defer to primary team # Smoking: smoking cessation as above Anticipate discharge to home tomorrow. Cardiology f/u with me on 12/10 at 1PM in [place]. Problems: Pain Evaluation: Adequate Pain Control VTE Mechanical Devices: Intermittant Pneumatic CD Resuscitation Status: CPR: Attempt Resuscitation Isra Hammonds MD Nov 17, 2016 11:07
--- NOTE | 2016-11-17 11:10 | PCM.DIMED ---
Discharge Instructions Date of Service Nov 17, 2016 Dates of Hospitalization Nov 15, 2016 at 03:31 Discharge Diagnosis Discharge Diagnosis STEMI CAD DM HLD Diet Heart Healthy, Diabetic Activity Limited until seen by PCP Call your provider Shortness of breath, Bleeding, Chest pain, Weakness (unilateral) Patient Instructions Follow-up with PCP in: 1 week Provider: Isra Hammonds MD Follow-up in: 2 weeks Miko Chaves DO Nov 17, 2016 11:01
--- NOTE | 2016-11-17 19:24 | PCM.DC.MED ---
Discharge Summary Date of Service Nov 17, 2016 Dates of Hospitalization Date of Hospital Admission Nov 15, 2016 at 03:31 Date of Discharge: Nov 17, 2016 Providers: Admitting Physician: Eduar Boss MD Primary Care Physician: Chano Vance MD Attending Physician: Eduar Boss MD Diagnosis at Time of Discharge Diagnosis at Time of Discharge Coronary artery disease with new RCA stent Consultations Cardiology Procedures XRay, CTs & MRIs CXR normal ECG [address] elevations inferior leads. Cardiac Echo Impression Echocardiogram 11/15/2016 interpretation Summary 1) Normal left ventricular thickness and size with borderline reduced systolic function (EF 50-55%). 2) Normal right ventricular size and function. 3) Basal inferolateral wall and basal to mid inferior wall are akinetic 4) No significant valvular abnormalities. 5) No prior Echo available for comparison. Invasive Procedures Coronary angiography with RCA stent placement Brief History 66 yo with 3 days of recurrent chest pain, all at rest. She awoke at about 1 AM today with a deep and more severe chest pressure with some radiation to the left arm. No nausea, dyspnea or diaphoresis. Nothing helped or worsened the pain. Not increased with deep breathing. No recent dyspepsia. No recent exertional chest pain or HERNANDEZ. No leg edema or orthopnea. No recent cough, rhinorrhea, or fevers. No leg edema or hemoptysis. A STEMI code was called in ED and she was taken to [facility] job lab[facility]. She had a vfib arrest and was defibrillaed before cath. A totally occluded RCA was found and ballooned and stented. She had another vfib arrest in cath and was defibrillated again. Since procedure she has had only some chronic back pain but no chest pain or dyspnea. Hospital Course This is a 66-year-old female admitted with a ST elevated [place], she was taken to the [facility] and RCA drug-eluting stent was placed in the right coronary artery. As noted above she did have 2 episodes of cardiac arrest requiring cardioversion. At the day of discharge the patient is feeling significantly better, she does have some chest wall discomfort but no cardiac type chest pains. She has been evaluated today by cardiology, her medications have been adjusted and she feels comfortable with discharge home. She was discharged home in stable condition and will need to follow up with her primary care physician within one week, sooner if her condition worsens in anyway. She is also instructed to follow-up with cardiology in 2-3 weeks. Her new medications were discussed with her, prescriptions given. Delineated problem list as below. 1. STEMI with RCA YANDEL. POA. Continue with dual antiplatelets, metoprolol, and statin.Anticipate dc 11/17. Ambulate and tele today. 2. VFib arrest (x 2), resolved. Telemetry. 3. Essential hypertension, POA. Up titrate metoprolol. Increase lisinopril. 4. Tobacco dependence, POA. Nicoderm, counseled the importance of smoking cessation. 5. DM 2 , POA. coreectional lispro with AC,HS accuchecks. Full code Exam Vital Signs (Last) Date Time Temp Pulse Resp B/P Pulse Ox O2 Delivery O2 Flow Rate FiO2 11/17/16 10:04 58 11/17/16 08:34 36.4 18 184/69 96 Room Air Test 11/15/16 03:00 11/15/16 08:19 11/17/16 08:23 White Blood Count 11.3th/mm3 (3.8-10.1) Red Blood Count 4.79mil/mm3 (3.90-5.20) Hemoglobin 14.9g/dL (12.0-15.6) Hematocrit 45.1% (35.0-46.0) Mean Corpuscular Volume 94.2fL (81-100) Mean Corpuscular Hemoglobin 31.1pg (27.0-35.0) Mean Corpuscular Hemoglobin Concent 33.0% (32.0-37.0) Red Cell Distribution Width 14.2% (12.3-15.4) Platelet Count 328bil/L (150-400) Neutrophils (%) (Auto) 46.7% (40-74) Lymphocytes (%) (Auto) 39.5% (14-46) Monocytes (%) (Auto) 8.8% (4-12) Eosinophils (%) (Auto) 4.3% (0-5) Basophils (%) (Auto) 0.6% (0-3) Hemoglobin A1c 5.7% (4.8-5.6) Magnesium Level 1.9mg/dL (1.6-2.6) Total Bilirubin 0.2mg/dL (0.0-1.2) Aspartate Amino Transf (AST/SGOT) 14U/L (0-50) Alanine Aminotransferase (ALT/SGPT) 13U/L (0-32) Alkaline Phosphatase 71U/L (25-165) Troponin T 0.010ug/L (0.0-0.011) Total Protein 7.6g/dL (6.4-8.4) Albumin 4.6g/dL (3.4-5.0) Triglycerides Level 184mg/dL (0-149) Cholesterol Level 164mg/dL (100-199) LDL Cholesterol, Calculated 74.200mg/dL (0-99) VLDL Cholesterol 36.800mg/dL HDL Cholesterol 53mg/dL (>39) Cholesterol/HDL Ratio 3.09 (0.0-4.4) Hold Max Top Tube Received (Received) Urine Color Yellow (YELLOW) Urine Appearance Hazy (CLEAR,HAZY) Urine pH 6.0 (5.0-8.0) Urine Specific [place] 1.010 (1.003-1.035) Urine Protein Negativemg/dL (NEG,TRACE) Urine Glucose (UA) Negativemg/dL (NEGATIVE) Urine Ketones Negativemg/dL (NEGATIVE) Urine Occult Blood Small (NEGATIVE) Urine Nitrite Negative (NEGATIVE) Urine Bilirubin Negative (NEGATIVE) Urine Urobilinogen Normalmg/dL (NORMAL) Urine Leukocyte Esterase Trace (NEGATIVE) Urine RBC 3-10/hpf (0-2) Urine WBC 0-5/hpf (0-5) Urine Epithelial Cells Occasional/hpf (NONE-MOD) Urine Crystals None seen (NONE SEEN) Urine Bacteria Few/hpf (NONE-FEW) Urine Hyaline Casts None/lpf (NONE) Urine Granular Casts None seen (NONE SEEN) Urine Waxy Casts None seen (NONE SEEN) Urine Red Blood Cell Casts None seen (NONE SEEN) Urine White Blood Cell Casts None seen (NONE SEEN) Urine Mucus None seen (None Seen) Urine Trichomonas None seen (NONE SEEN) Urine Yeast None (NONE SEEN) Urinalysis Comment None Sodium Level 142mEq/L (134-144) Potassium Level 4.4mEq/L (3.5-5.2) Chloride Level 105mEq/L (97-108) Carbon Dioxide Level 24mmol/L (18-29) Blood Urea Nitrogen 19mg/dL (8-27) Creatinine 0.61mg/dL (0.57-1.00) Estimat Glomerular Filtration Rate 141mL/min (>59) Glucose Level 107mg/dL (60-99) Calcium Level 9.5mg/dL (8.5-10.1) Discharge Medications Discharge Medications Amlodipine (Amlodipine) 5 Mg Tablet 5 MG PO QAM (Reported) Aspirin Chew (Aspirin Chew) 81 Mg Chew 81 MG PO DAILY Prescribed by: ANATOLY CARTER DO Atorvastatin (Lipitor) 40 Mg Tablet 40 MG PO HS (Reported) Clopidogrel (Clopidogrel) 75 Mg Tablet 75 MG PO DAILY Prescribed by: ANATOLY CARTER DO Lisinopril (Lisinopril) 20 Mg Tablet 20 MG PO BID Prescribed by: ANATOLY CARTER DO Metformin (Metformin) 500 Mg Tablet 500 MG PO BID (Reported) Metoprolol Succinate ER (Metoprolol Succinate ER) 25 Mg Tab.er.24h 25 MG PO HS Prescribed by: ANATOLY CARTER DO Multivitamin (Multi Vitamin Daily) 1 Each Tablet 1 TABLET PO DAILY (Reported) [place]-3 Fatty Acids/Fish Oil ([place] 3 1,000 mg Softgel) 1 Each Capsule 1 CAPSULE PO DAILY (Reported) As needed Acetaminophen/Codeine 300-30mg (Tylenol/Codeine #3) 1 Each Tablet 1-2 TABLET PO Q4H PRN PRN Pain (Reported) Calcium Carbonate (Calcium) 600 Mg Tablet 1,200 MG PO DAILY PRN PRN Calcium ( Reported) Diazepam (Valium) 5 Mg Tablet 5 MG PO TID PRN PRN Vertigo (Reported) Followup Plan Follow-up with PCP in: 1 week Time spent 45 minutes copies to: Chano Vance MD, Brian F DO Nov 17, 2016 11:02
== END 2016-11-17 15:00 | disposition home or self-care (01) | DRG 246 ==
LOC: SED 03:01 → CCU 03:31 → OBSVTOIN 03:31 → INTOOBSV 03:31 → PCC 11:47
PROVIDERS: ADMIT Internal Medicine Cardiovascular Disease; ATTEND Internal Medicine Cardiovascular Disease
PROC: 027034Z Dilation of Coronary Artery, One Artery with Drug-eluting Intraluminal Device, Percutaneous Approach (ICD-10-PCS; principal; 2016-11-15)
PROC: 4A023N7 Measurement of Cardiac Sampling and Pressure, Left Heart, Percutaneous Approach (ICD-10-PCS; 2016-11-15)
PROC: B2111ZZ Fluoroscopy of Multiple Coronary Arteries using Low Osmolar Contrast (ICD-10-PCS; 2016-11-15)
DX: I21.11 ST elevation (STEMI) myocardial infarction involving right coronary artery (principal); I49.01 Ventricular fibrillation; I10 Essential (primary) hypertension; E11.9 Type 2 diabetes mellitus without complications; F17.210 Nicotine dependence, cigarettes, uncomplicated; I25.10 Atherosclerotic heart disease of native coronary artery without angina pectoris; Z79.4 Long term (current) use of insulin

== ENCOUNTER 2017-02-11 21:05 | Emergency (ER) | payer MEDICARE ==
[~2017-02-11] VITALS: Ht 167.6 cm; Wt 66.4 kg
[~2017-02-11 21:05] MED LIST changes: -ASPI325T32 PO; +ASPI81TA3 PO; -ATEN100T PO; -BENA40TA2 PO; +CLOP75TA28 PO; +LISI-567 PO; -MELO7.5O PO; +METO25TA99 PO; -TRAZ150T72 PO
[2017-02-11 21:10] VITALS: BP 146/72; PULSE 70; RESP 16; O2SAT 98
--- NOTE | 2017-02-11 21:59 | ED.REPORT ---
HPI-Extremity Problem Lower Date of Service Feb 11, 2017 ED Provider: Jacob Mayberry MD Patient is a 66 year old female with a history of recent NM and hypertension who presents to the ED complaining of right calf pain onset a month ago. Associated symptoms include pain on the bottom of her right foot but it is only when she walks. Patient states that she mentioned it to her primary care physician, who recommended massaging the calf but it did not provide any relief. She is currently on Plavix. Nursing Notes Stated Complaint: RIGHT LEG PAIN Chief Complaint: Extremity Trauma Nursing Notes Reviewed: Yes Allergies: Coded Allergies: No Known Allergies (Verified Allergy, Unknown, 02/23/16) Scheduled Amlodipine (Amlodipine) 5 Mg Tablet 5 MG PO QAM Aspirin Chew (Aspirin Chew) 81 Mg Chew 81 MG PO DAILY Atorvastatin (Lipitor) 40 Mg Tablet 40 MG PO HS Clopidogrel (Clopidogrel) 75 Mg Tablet 75 MG PO DAILY Lisinopril (Lisinopril) 20 Mg Tablet 20 MG PO BID Metformin (Metformin) 500 Mg Tablet 500 MG PO BID Metoprolol Succinate ER (Metoprolol Succinate ER) 25 Mg Tab.er.24h 25 MG PO HS Multivitamin (Multi Vitamin Daily) 1 Each Tablet 1 TABLET PO DAILY [place]-3 Fatty Acids/Fish Oil ([place] 3 1,000 mg Softgel) 1 Each Capsule 1 CAPSULE PO DAILY Scheduled PRN Acetaminophen/Codeine 300-30mg (Tylenol/Codeine #3) 1 Each Tablet 1-2 TABLET PO Q4H PRN PRN Pain Calcium Carbonate (Calcium) 600 Mg Tablet 1,200 MG PO DAILY PRN PRN Calcium Diazepam (Valium) 5 Mg Tablet 5 MG PO TID PRN PRN Vertigo General Time Seen by MD: 21:57 Chief Complaint Leg injury right Hx Obtained From: Patient Arrived By: Walk-in Onset Occurred: More than a week ago... (1 month) Symptom Duration: Since onset Location: : Leg right Quality: Painful Severity: Current: Moderate Exacerbated by: Movement Recent Healthcare: Recent doctor visit, Recent hospitalization Similar Sx Previous: No Past Medical History Past Medical History Osteoarthritis NM Reports: Diabetes mellitus, Hypertension Past Surgical History bilateral hip and shoulder replacements, 2 part Reports: Appendectomy, , Cholecystectomy, Hysterectomy Smoking History Current Every Day Smoker Social History Alcohol Use: Denies alcohol use Drug Use: Denies drug use Other Social History: Good social support, Ambulatory Status Independent Review of Systems Constitutional: Denies: Chills, Fever Musculoskeletal: Reports: Extremity pain (right calf), Denies: Extremity swelling Skin: Denies Itching, Denies Rash Neurologic: Denies: Numbness, Problem walking, Weakness Complete sys rev & neg: except as marked. Respiratory: Denies: Non-productive cough, Shortness of breath Physical Exam Initial Vital Signs Vital Signs (First) Date Time Temp Pulse Resp B/P Pulse Ox O2 Delivery O2 Flow Rate FiO2 02/11/17 21:10 36.7 70 16 146/72 98 Room Air Initial VS: Reviewed Lower Extremity / Pelvis / MS: Atraumatic, Inspection NL, Full range of motion good dp and tp pulses no signs of trauma right calf is not significantly swollen compared to left Ankle / Foot: Atraumatic, Full range of motion, Non-tender General/Constitutional: Awake, Alert, No acute distress Respiratory / Chest: Atraumatic, Breath sounds NL, Breath sounds = bilat, No respiratory distress Cardiovascular: Heart rate NL, Regular rhythm, Heart sounds NL, No gallop, No murmurs Skin: Atraumatic, Color NL, No rash, Warm, Dry Neurologic: Oriented X3, Speech NL, No motor deficits, No sensory deficits Head / Eyes: Atraumatic, Normocephalic, PERRL, EOMI Neck: Atraumatic, Supple, Full range of motion Abdomen: Atraumatic, Soft, Non-tender, No distention Upper Extremity / MS: Atraumatic, Full range of motion Psychiatric: Affect NL, Mood NL Interpretation & Diagnostics Interpretation & Diagnostics: VENOUS ULTRASOUND RIGHT LOWER EXTREMITY: Conclusion: No evidence of deep venous thrombosis is identified within the deep veins of the right lower extremity. at 2230 Re-Eval/Medical Decision Med Decision/Clinical Course Patient is a 66 year old female with a history of recent NM and hypertension who presents to the ED complaining of right calf pain onset a month ago. Associated symptoms include pain on the bottom of her right foot but it is only when she walks. Patient states that she mentioned it to her primary care physician, who recommended massaging the calf but it did not provide any relief. She is currently on Plavix. Here in the emergency department the patient is afebrile with stable vital signs and examination as above. She states that her primary concern is that she could have a blood clot in her leg. VENOUS ULTRASOUND RIGHT LOWER EXTREMITY: Conclusion: No evidence of deep venous thrombosis is identified within the deep veins of the right lower extremity. at 2230 Ears no evidence of neurovascular injury in the affected extremity. There is no evidence of infection, cellulitis or abscess. She has good cap refill and sensation to the distal aspect of her toes. She does have some tenderness of the arch of her foot and reports that symptoms are worse with prolonged standing and walking. I suspect that some of her symptoms may actually be related to plantar fasciitis. She certainly does not have a DVT. I advised her to follow up with her primary care physician. I advised her to use she will inserts and try ice packs and hot packs. At this time, the patient does not desire any further workup and I feel that she is appropriate for discharge and PCP follow-up. Prior to discharge follow-up and return precautions were reviewed in detail with the patient who verbalized understanding and agreement with the plan. The patient was discharged in stable condition. Re-Evaluation/Progress : Time of Eval: 22:33 Re-Evaluation/Progress Note: Discussed ultrasound results and plan for discharge. Patient understands and agrees to plan. All questions were addressed. Counseled Regarding: Diagnosis, Lab results, Need for follow-up, When/why to return to ED Discharge & Departure Impression: Primary Impression: Right calf pain Additional Impression: History of NM (myocardial infarction) Disposition: Home Discharge Condition All VS Reviewed: Yes Condition: Stable Patient Instructions: Plantar Fasciitis (ED) Additional Instructions: Thank you for seeking care at the emergency room. Your ultrasound was normal and showed no evidence of a blood clot. Our primary goal today in the ED was to evaluate you for any life-threatening conditions. Your evaluation was reassuring. You can try using heat and ice pack to help with the pain. Adding an insert to your shoes may also provide cushion and relief. Also, try elevating your leg. You should follow-up with your primary doctor in the next week. You should return to the ED immediately if you develop redness, swelling, warmth , numbness, weakness or any other concerning signs or symptoms. Thank you for letting us partake in your care today. Referrals: Chano Vance MD (PCP) Marla Attestation Portions of this note were transcribed by Alexia Jones. I, Dr. Mayberry personally performed the history, physical exam and medical decision-making; I reviewed and confirmed the accuracy of the information in the transcribed note. Signed by: Marla Mcdonnell, 02/11/17 and 3307 copies to: Chano Vance MD, Beck O MD Feb 11, 2017 21:59 Lyn Jones Feb 11, 2017 22:25
--- NOTE | 2017-02-12 09:28 | DRSVH ---
PROCEDURE: US VEINOUS LEG DUPLEX UNILATERAL, RIGHT INDICATIONS: Right lower leg pain and swelling. TECHNIQUE: Real-time imaging, as well as color and pulse Doppler interrogation, were performed of the lower extr emity deep veins from the inguinal ligament to the popliteal fossa. COMPARISON: None. FINDINGS: The deep veins are normally compressible, and free of intraluminal thrombus. Color and pu lse Doppler demonstrate normal phasic intraluminal flow. There is normal augmentation response to di stal compression maneuver. IMPRESSION: 1. No evidence of deep venous thrombosis in the right lower extremity. Dictated by: Usman Mcgowan M.D. on 02/12/2017 at 9:20 Approved by: Usman Mcgowan M.D. on 02/12/2017 at 9:21
== END 2017-02-11 22:31 | disposition home or self-care (01) ==
LOC: SED 21:05
DX: M79.661 Pain in right lower leg (principal); I11.9 Hypertensive heart disease without heart failure; I25.2 Old myocardial infarction; E11.59 Type 2 diabetes mellitus with other circulatory complications; F17.200 Nicotine dependence, unspecified, uncomplicated; Z79.82 Long term (current) use of aspirin; Z79.84 Long term (current) use of oral hypoglycemic drugs